=== PATIENT | male | born 1945 | race Caucasian/White ===

== ENCOUNTER → 2017-03-04 | Outpatient (CLI) | payer MEDICARE ==
--- NOTE | 2017-03-04 15:21 | RADRPT ---
EXAM DATE/TIME: 03/04/2017 00:00 [place] COMPARISON: No previous studies available for comparison. INDICATIONS : Intermittent Claudication TECHNIQUE: Five-station segmental examination of the lower extremities was performed pre and post extercise. Pulsed-cuff waveform tracings and pressures were recorded. Ankle-brachial indices and toe-brachial indices were calculated. PRESSURES (mmHg): Pre Exercise: Brachial (arm): Right 155 Left 142 Lower Thigh: Right 171 Left 103 Calf: Right 172 Left 84 Ankle: Right 162 Left 92 PADMINI: Right 1.05 Left 0.59 TBI: Right 0.79 Left 0.59 Post Exercise: Brachial (arm): Right 194 Ankle: Right 0.96 Left 0.22 PULSED CUFF WAVEFORMS: Demonstrate decreased pulse amplitude throughout the left lower extremity. CONCLUSION: 1. Normal PADMINI and TBI on the right. 2. Decreased PADMINI and TBI on the left. There is a decreased pulse amplitude throughout suggesting infl ow disease. CT angiography and runoff could be performed for further assessment. Teodoro Seo MD on March 04, 2017 at 15:18 Board Certified Radiologist. This report was verified electronically.
== END ==
LOC: HCAV 12:55
DX: I70.219 Atherosclerosis of native arteries of extremities with intermittent claudication, unspecified extremity (principal)
CPT/HCPCS: 93924